=== PATIENT | male | born 1980 | race Two or more races ===

== ENCOUNTER 2022-05-06 07:45 | Outpatient (CLI) | payer OTHER | END 2022-05-06 07:46 | disposition home or self-care (01) | LOC: EDSEX 07:45 → LAB 07:45 | PROVIDERS: ATTEND General Practice | DX: E78.5 Hyperlipidemia, unspecified (principal); N40.1 Benign prostatic hyperplasia with lower urinary tract symptoms; D64.9 Anemia, unspecified; E29.1 Testicular hypofunction; N39.0 Urinary tract infection, site not specified; I11.9 Hypertensive heart disease without heart failure ==

== ENCOUNTER → 2022-05-06 08:46 | Outpatient (CLI) | payer OTHER | END | disposition home or self-care (01) | LOC: MRI 08:46 | PROVIDERS: ATTEND General Practice | DX: M54.50 Low back pain, unspecified (principal) | CPT/HCPCS: 72148 ==